=== PATIENT | female | born 1980 | race Hispanic/Latino ===

== ENCOUNTER 2017-05-22 17:04 | Emergency (ER) | payer MEDICAID, OTHER ==
[2017-05-22 17:04] VITALS: BMI 20.3
[2017-05-22 17:31] VITALS: BP 118/78
[2017-05-22] MEDS ORDERED: Penicillin G Benzathine 2.4 Mill Unit/4 ml Syr IM ONE (18:07)
--- NOTE | 2017-05-22 18:26 | ED PDOC ---
Arrival/HPI - General Chief Complaint: Female Genitourinary Time Seen by Provider: 05/22/17 17:05 Historian: Patient - History of Present Illness Narrative History of Present Illness (Text): 05/22/17 18:23 36yr old female presents today with concerns for syphilis. Patient states that 2 days ago she received a phone call from her ex-boyfriend stating that he was diagnosed with syphilis. Patient states she became worried and started to have some intermittent vaginal spotting present to the emergency room today for evaluation and treatment. Patient denies headache dizziness or weakness. Denies nausea or vomiting. Denies . Denies back pain. Patient denies rash. Patient states at times she has noticed a slight discharge. Denies foul odor. No other complaints. Symptom Onset: Gradual Quality: Other (no pain) Past Medical History - Provider Review Nursing Documentation Reviewed: Yes - Travel History Have you recently traveled outside [place] w/in the past 3 mons?: No - Infectious Disease Hx of Infectious Diseases: None - Tetanus Immunization Tetanus Immunization: >10 years Ago - Past Medical History Past Medical History: No Previous - Cardiac Hx Cardiac Disorders: No - Pulmonary Hx Respiratory Disorders: No - Neurological Hx Neurological Disorder: No - HEENT Hx HEENT Disorder: No - Renal Hx Renal Disorder: No - Endocrine/Metabolic Hx Endocrine Disorders: No - Hematological/Oncological Hx Blood Disorders: Yes Hx Cancer: Yes (CERVIX) - Integumentary Hx Dermatological Disorder: No - Musculoskeletal/Rheumatological Hx Musculoskeletal Disorders: No - Gastrointestinal Hx Gastrointestinal Disorders: No - Genitourinary/Gynecological Hx Genitourinary Disorders: Yes Hx Cervical Cancer: Yes - Psychiatric Hx Psychophysiologic Disorder: Yes Hx Anxiety: Yes Hx Depression: Yes Hx Substance Use: Yes (HEROINE) - Past Surgical History Past Surgical History: Non-Contributing - Surgical History Other/Comment: Cervical biopsy - Anesthesia Hx Anesthesia: No Hx Anesthesia Reactions: No Hx Malignant Hyperthermia: No - Suicidal Assessment Feels Threatened In Home Enviroment: No Family/Social History - Physician Review Nursing Documentation Reviewed: Yes Family/Social History: Unknown Family HX Smoking Status: Heavy Smoker > 10 Cigarettes Daily Hx Alcohol Use: Yes Frequency of alcohol use: Socially Hx Substance Use: Yes (HEROINE) Substance used: Heroine Hx Substance Use Treatment: Yes Allergies/Home Meds Allergies/Adverse Reactions: Allergies No Known Allergies Allergy (Verified 05/22/17 17:16) Home Medications: Home Meds Medication Instructions Recorded Confirmed No Known Home Med 05/22/17 05/22/17 Review of Systems - Review of Systems Constitutional: absent: Fatigue, Fevers Respiratory: absent: SOB, Cough Cardiovascular: absent: Chest Pain, Palpitations Gastrointestinal: absent: Abdominal Pain, Nausea, Vomiting Genitourinary Female: Vaginal Bleeding, Vaginal Discharge. absent: Dysuria, Frequency, Hematuria Musculoskeletal: absent: Arthralgias, Back Pain, Neck Pain Skin: absent: Rash, Pruritis Neurological: absent: Headache, Dizziness Psychiatric: absent: Anxiety, Depression Physical Exam Vital Signs Reviewed: Yes Vital Signs Temp Pulse Resp BP Pulse Ox 05/22/17 17:17 97.8 F 80 16 118/78 98 Temperature: Afebrile Blood Pressure: Normal Pulse: Regular Respiratory Rate: Normal Appearance: Positive for: Well-Appearing, Non-Toxic, Comfortable Pain Distress: None Mental Status: Positive for: Alert and Oriented X 3 - Systems Exam Head: Present: Atraumatic Mouth: Present: Moist Mucous Membranes Neck: Present: Normal Range of Motion Respiratory/Chest: Present: Clear to Auscultation, Good Air Exchange. No: Respiratory Distress, Accessory Muscle Use Cardiovascular: Present: Regular Rate and Rhythm, Normal S1, S2. No: Murmurs Abdomen: No: Tenderness, Rebound, Guarding Genitourinary/Pelvic Exam: Present: Normal External Genitalia, Other ( chaparoned by angi overton EMT). No: Vaginal Discharge, Vaginal Bleeding, Vaginal Lesions, Adenexal Tenderness, Adenexal Mass, Cervical Motion Tendernes, Cervical os Closed, Odor Upper Extremity: Present: Normal ROM Lower Extremity: Present: Normal ROM Neurological: Present: GCS=15, Speech Normal Skin: Present: Warm, Dry, Normal Color. No: Rashes Psychiatric: Present: Alert, Oriented x 3 Medical Decision Making ED Course and Treatment: 05/22/17 18:26 36yr old female non toxic well appearing; no distress. stable vitals. negative pt with concerns for syphilis. will test for syphilis with [facility]. will treat for syphilis as patient was notified that her partner was + for syphilis Benzathine penicillin G 2.4 million units given. GC/chlamydia cultures pending pt was advised to f/u with lab results within 5 days. advised immediate return if symptoms worsen, persist or if new symptoms develop; advised patient to refrain from sexual intercourse. advised patient to have partners tested. Patient verbalizes understanding of discharge instructions and need for immediate followup. all aspects of this case were discussed the attending of record. Impression: Concern for STD exposure follow up with the [facility] within the next 2 days. follow up with the primary care physician within the next 2 days return if symptoms worsen, persist or if new symptoms develop - Medication Orders Current Medication Orders: Penicillin G Benzathine (Bicillin L-A Inj) 2,400,000 units IM ONCE ONE PRN Reason: Protocol Stop: 05/22/17 18:08 Disposition/Present on Arrival - Present on Arrival Any Indicators Present on Arrival: No History of DVT/PE: No History of Uncontrolled Diabetes: No Urinary Catheter: No History of Decub. Ulcer: No History Surgical Site Infection Following: None - Disposition Have Diagnosis and Disposition been Completed?: Yes Diagnosis: Exposure to STD Disposition: HOME/ ROUTINE Disposition Time: 18:39 Patient Plan: Discharge Condition: GOOD Additional Instructions: follow up with the [facility] within the next 2 days. follow up with the primary care physician within the next 2 days return if symptoms worsen, persist or if new symptoms develop Referrals: Charles Vinson MD [Primary Care Provider] - Follow up with primary Gavino Joy MD [Staff Provider] - Follow up with primary Maxi Haro MD [Staff Provider] - Follow up with primary [facility] [Outside] - [facility] [Outside] - Follow up with primary
[2017-05-22 19:16] VITALS: PULSE 89; RESP 19; TEMP 98.9; O2SAT 99
== END 2017-05-22 19:17 | disposition home or self-care (01) ==
LOC: ED 17:04
DX: Z20.2 Contact with and (suspected) exposure to infections with a predominantly sexual mode of transmission (principal); F17.210 Nicotine dependence, cigarettes, uncomplicated
CPT/HCPCS: 86592; 87491; 87591; 96372; 99283; J0561